=== PATIENT | male | born 1955 | race Caucasian/White ===

== ENCOUNTER 2021-12-25 14:26 | Emergency (ER) | payer MEDICARE, BC ==
[2021-12-25] MEDS ORDERED: Lidocaine 1% 5 ML VIAL INJECT ONE (15:07)
[2021-12-25] MEDS ORDERED: Bacitracin Oint 1 GM U/D Packet TOP ONE (15:24)
[2021-12-25] MEDS ORDERED: Diphtheria,Pertussis(Acell),Tetanus Vaccine 0.5 ML Syringe IM ONE (15:24)
== END 2021-12-25 15:49 | disposition home or self-care (01) ==
LOC: JP.ED 14:26
DX: S80.851A Superficial foreign body, right lower leg, initial encounter (principal); Z23 Encounter for immunization; W45.8XXA Other foreign body or object entering through skin, initial encounter
CPT/HCPCS: 90471; 90715; 99281; 99283-25